=== PATIENT | female | born 1990 | race Caucasian/White ===

== ENCOUNTER 2016-06-10 09:30 | Outpatient (CLI) | payer OTHER ==
[~2016-06-10] VITALS: Ht 165.1 cm; Wt 93.0 kg
[2016-06-10] MEDS ORDERED: PRENTAB26 PO (09:58)
[2016-06-10 10:00] VITALS: Ht 165.1 cm; Wt 93.0 kg
== END 2016-06-10 10:42 | disposition home or self-care (01) ==
LOC: C.OPB 09:30 → C.LD 09:30 → C.OPB 10:42
PROVIDERS: ATTEND Obstetrics & Gynecology
DX: O36.8130 Decreased fetal movements, third trimester, not applicable or unspecified (principal); Z3A.37 37 weeks gestation of pregnancy

== ENCOUNTER → 2016-06-11 | Outpatient (CLI) | payer OTHER ==
[~2016-06-11] MED LIST: PRENTAB26 PO
== END | disposition home or self-care (01) ==
LOC: C.LABSPEC 15:04
PROVIDERS: ATTEND Obstetrics & Gynecology
DX: Z34.02 Encounter for supervision of normal first pregnancy, second trimester (principal)

== ENCOUNTER 2016-06-29 19:39 | Outpatient (CLI) | payer OTHER ==
[~2016-06-29] VITALS: Ht 160 cm; Wt 95.0 kg
[2016-06-29 20:11] VITALS: Ht 160 cm; Wt 95.0 kg
== END 2016-06-29 21:30 | disposition home or self-care (01) ==
LOC: C.OPB 19:39 → C.LD 19:39 → C.OPB 21:30
PROVIDERS: ATTEND Obstetrics & Gynecology
DX: O99.89 Other specified diseases and conditions complicating pregnancy, childbirth and the puerperium (principal); F41.9 Anxiety disorder, unspecified; Z3A.39 39 weeks gestation of pregnancy

== ENCOUNTER 2016-06-30 08:00 | Inpatient (IN) | payer OTHER ==
[~2016-06-30] VITALS: Ht 160 cm; Wt 95.5 kg
[2016-06-30] MEDS ORDERED: MISOPROSTOL 25 MCG TAB ONE (08:26)
[2016-06-30] MEDS ORDERED: LACTATED RINGER'S 1000ML 1,000 ML IV PRN (08:34)
[2016-06-30] MEDS ORDERED: LACTATED RINGER'S 1000ML 500 ML IV PRN ×2 (08:34→15:07)
[2016-06-30] MEDS ORDERED: OXYTOCIN 30 UNITS/500ML NSS IV PRN ×2 (08:45→22:00)
[2016-06-30] MEDS ORDERED: MISOPROSTOL 25 MCG TAB PV ONE (08:45)
[2016-06-30 09:03] VITALS: Ht 160 cm; Wt 95.5 kg
[2016-06-30 09:08] LABS: HEMATOCRIT 31.8 % (37-47); MEAN CELL VOLUME 77.4 fL (80-100); MEAN CORPUSCULAR HEMOGLOBIN 24.3 pg (25-34); MEAN CORPUSCULAR HGB CONC 31.4 g/dl (32-36); MEAN PLATELET VOLUME 11.6 fL (7.4-10.4); PLATELET COUNT 214 K/uL (130-400); RED BLOOD COUNT 4.11 M/uL (4.2-5.4); WHITE BLOOD COUNT 9.66 K/uL (4.8-10.8)
[2016-06-30] MEDS ORDERED: LACTATED RINGER'S 1000ML 1,000 ML IV SCH ×2 (09:30→22:50)
[2016-06-30] MEDS ORDERED: EpHEDrine SULFATE INJ 50 MG/ML AMP ONE (14:26)
[2016-06-30] MEDS ORDERED: BUPIVACAINE 0.25% 30 ML VIAL ONE (14:26)
[2016-06-30] MEDS ORDERED: FENTANYL 2MCG/ML ROPIV 1.25MG/ML 100ML BAG EPI ONE (14:26)
[2016-06-30] MEDS ORDERED: FENTANYL CITRATE INJ 50 MCG/1 ML 2 ML VIAL ONE (14:27)
[2016-06-30] MEDS ORDERED: ONDANSETRON INJ 2 MG/ML 2 ML VIAL IV PRN (15:15)
[2016-06-30] MEDS ORDERED: NALBUPHINE HCL INJ 10 MG/ML AMP IV PRN (15:15)
[2016-06-30] MEDS ORDERED: DiphenhydrAMINE HCL 50 MG/ML VIAL IV PRN (15:15)
[2016-06-30] MEDS ORDERED: NALOXONE HCL INJ 0.4 MG/1 ML VIAL/CARP IV PRN (15:15)
[2016-06-30] MEDS ORDERED: EpHEDrine SULFATE INJ 50 MG/ML AMP IV PRN (15:15)
[2016-06-30] MEDS ORDERED: FENTANYL 2MCG/ML ROPIV 1.25MG/ML 100ML BAG EPI PRN (15:15)
[2016-06-30] MEDS ORDERED: DIPHTHERIA/TETANUS/PERTUSSIS 0.5 ML SYR/VIAL IM. ONE (22:00)
[2016-06-30] MEDS ORDERED: LANOLIN OINT EXT PRN ×2 (22:00)
[2016-06-30] MEDS ORDERED: HYDROCORTISONE ACETATE 25 MG SUPP PR PRN (22:00)
[2016-06-30] MEDS ORDERED: ACETAMINOPHEN 325 MG TAB PO PRN (22:00)
[2016-06-30] MEDS ORDERED: OXYCODONE/ACETAMINOPHEN 5-325 TAB PO PRN (22:00)
[2016-06-30] MEDS ORDERED: BENZOCAINE 20% AER SPR 82.5 GM CAN EXT PRN (22:00)
--- NOTE | 2016-06-30 22:49 | DELIVERY SUMMARY ---
DATE OF OPERATION: 06/30/2016 PREOPERATIVE DIAGNOSES: 1. Mauricio intrauterine at term. 2. Induction of labor. 3. Group B strep negative. POSTOPERATIVE DIAGNOSES: Same. PROCEDURES: 1. Spontaneous vaginal delivery. 2. Second degree perineal laceration. SURGEON: Dr. Xavier. OIL BURNER REPAIRER: None. ESTIMATED BLOOD LOSS: 400. FINDINGS: Mild shoulder dystocia resolved with Sharda positioning. Compound presentation of the with the right arm wrapped around the neck and the right hand on the left shoulder. Placenta spontaneous and intact with a 3-vessel cord. COMPLICATIONS: None. DISPOSITION: Stable in labor and delivery. PROCEDURE IN DETAIL: Katty is a 26-year-old G1, P0 who presented at 39 and 5/7 weeks gestational age for elective induction of labor due to maternal inability to perceive movements which had been chronic over several weeks. Her induction was begun with a Andrade bulb on the night of the . She presented again on the morning of the with the cervix minimally changed. Therefore, she received a dose of Cytotec, followed by artificial rupture of membranes and eventually did require Pitocin as well. She was provided with an epidural for pain management. Once the patient reached complete dilation, she was coached through pushing and then I was called when the head was . She was prepped and readied for delivery. With the next push, she was able to deliver the head of the infant in the LYLA position. Following push did not result in any further forward movement. The patient was then placed in Sharda position. In the next push, she was able to deliver the right/anterior shoulder and was noted at that time to have compound presentation of the right arm with that hand on the left shoulder. The left shoulder then delivered without any difficulty, followed by the remainder of the infant. Once the was delivered, it was placed on the maternal abdomen and at her request, cord clamping was delayed. However, it became evident after approximately 20 seconds, that respiratory efforts in the were relatively weak and tone was relatively poor. For this reason, the cord was then clamped, cut and the was taken to the warmer for resuscitative efforts. DeLee suctioning was provided and the infant ultimately resuscitated well. Cord blood was collected. The placenta delivered spontaneously and a second degree laceration was repaired with Vicryl suture in the usual manner with a crown suture for perineal body and running locked suture as well as subcuticular suture to close the perineum. At the time of completion, the fundus was firm, well contracted. Lochia was minimal and mother and were in good condition, having tolerated delivery well. I attest to the content of the Intraoperative Record and any orders documented therein. Any exceptio ns are noted below.
[2016-07-01 00:15] VITALS: BP 114/76; PULSE 102; TEMP 36.8
[2016-07-01 04:00] VITALS: BP 125/74; PULSE 88; TEMP 36.4
--- NOTE | 2016-07-01 06:53 | Progress Note ---
Subjective Jul 01, 2016. Subjective conversation w/ patient, physical exam Ambulation: ambulating normally Voiding: no voiding problems Passing Gas: No Diet Tolerance: Clear Liquids Lochia: Moderate Feeding Type: Breast Feeding Pain: Pain well controlled Review of Systems Constitutional: No chills, No fever Respiratory: No cough, No shortness of breath Cardiac: No chest pain Breast: No breast pain Abdomen: No nausea, No pain, No vomiting Female : No dysuria Objective Vital Signs Date Time Temp Pulse Resp B/P Pulse Ox O2 Delivery O2 Flow Rate FiO2 07/01/16 04:00 36.4 88 18 125/74 Room Air 07/01/16 00:15 Room Air 07/01/16 00:15 36.8 102 114/76 Room Air Physical Exam General Appearance: WELL-APPEARING, WD/WN, NO APPARENT DISTRESS Respiratory/Chest: lungs clear, normal breath sounds Cardiovascular: regular rate, rhythm, no gallop, no murmur Abdomen: non tender, soft Fundus: Firm, Relation to Umbilicus (1cm above umbilicus) Extremities: no calf tenderness Laboratory Results Last 24 Hours Test 06/30/16 08:55 07/01/16 04:44 White Blood Count 9.66 K/uL Red Blood Count 4.11 M/uL Hemoglobin 10.0 g/dL Hematocrit 31.8 % Mean Corpuscular Volume 77.4 fL Mean Corpuscular Hemoglobin 24.3 pg Mean Corpuscular Hemoglobin Concent 31.4 g/dl RDW Standard Deviation 42.9 fL RDW Coefficient of Variation 15.2 % Platelet Count 214 K/uL Mean Platelet Volume 11.6 fL Medications Current Inpatient Medications Medications (Trade) Dose Ordered Sig/Chandana Route Start Time Stop Time Status Last Admin Dose Admin Lactated Ringer's 1,000 ml @ 125 mls/hr Q8H IV 06/30/16 09:30 07/02/16 09:29 06/30/16 15:07 125 MLS/HR Lactated Ringer's (Lr 1000ml) 1,000 ml @ 999 mls/hr Q1H1M PRN IV 06/30/16 08:34 07/30/16 08:33 06/30/16 15:07 999 MLS/HR Oxytocin 30 units 30 units UD PRN IV 06/30/16 08:45 07/30/16 08:44 06/30/16 18:06 30 UNITS Lactated Ringer's 500 ml @ 999 mls/hr Q31M PRN IV 06/30/16 08:34 07/30/16 08:33 06/30/16 12:09 999 MLS/HR Lactated Ringer's (Lr 1000ml) 1,000 ml @ 125 mls/hr Q8H IV 06/30/16 22:50 07/30/16 22:49 Oxytocin (Pitocin IV) 30 units UD PRN IV 06/30/16 22:00 07/30/16 21:59 Benzocaine (Dermoplast Aero Spr) 1 appln PRN PRN EXT 06/30/16 22:00 07/30/16 21:59 Cocaine HCl (Supercream 0.870% Cr) BID PRN EXT 06/30/16 22:00 07/14/16 21:59 Hydrocortisone Acetate (Anusol Hc Supp) 25 mg BID PRN [place] 06/30/16 22:00 07/30/16 21:59 Lanolin (Lanolin Oint) PRN PRN EXT 06/30/16 22:00 07/30/16 21:59 Prenat Multivit/ [place]/Iron/Folic Ac ( Vitamin Tab) 1 tab DAILY PO 07/01/16 08:00 07/31/16 07:59 Ibuprofen (Motrin Tab) 600 mg Q4H PRN PO 06/30/16 22:00 07/30/16 21:59 Acetaminophen (Tylenol Tab) 650 mg Q6H PRN PO 06/30/16 22:00 07/30/16 21:59 Oxycodone/ Acetaminophen (Percocet 5-325mg Tab) 1 tab Q4H PRN PO 06/30/16 22:00 07/14/16 21:59 Docusate Sodium (coLACE CAP) 100 mg BID PO 07/01/16 08:00 07/31/16 07:59 Assessment and Plan Post- Day#: 1 Continue Routine Care: - Vital Signs reviewed and WNL (temp max 36.4) - Blood Type: A+, GBS Negative, Rubella Immune - Patient doing well clinically - Encourage Ambulation today - Advance to PO Diet - No pain reported this morning and refused pain medication Resident Physician Supervision Note: I interviewed and examined the patient. Discussed with Dr. Montgomery and agree with findings and plan as documented in the note. Any exceptions or clarifications are listed here: Infant currently in intermediate nursery for respiratory distress. Per Dr. William, doing well and will be moved to room air by later today. Documented By: Valencia Xavier
--- NOTE | 2016-07-01 07:07 | Anesthesia Procedure Note ---
Anesthesia Epidural Removal Nt Date & Time Jul 01, 2016 at 07:07 Vital Signs Pain Intensity: 3.0 Vital Signs Past 12 Hours Date Time Temp Pulse Resp B/P Pulse Ox O2 Delivery O2 Flow Rate FiO2 07/01/16 04:00 36.4 88 18 125/74 Room Air 07/01/16 00:15 Room Air 07/01/16 00:15 36.8 102 114/76 Room Air Notes Mental Status: alert / awake / arousable, participated in evaluation Nausea / Vomiting: adequately controlled Pain: adequately controlled Airway Patency, RR, SpO2: stable & adequate BP & HR: stable & adequate Hydration State: stable & adequate Neuraxial Anesthesia: was administered, sensory block is resolved Anesthetic Complications: no major complications apparent, pt satisfied with anesthetic care Epidural: removed without complications, with tip intact
[2016-07-01 07:30] VITALS: BP 113/76; PULSE 94; TEMP 36.6
[2016-07-01 07:30] LABS: HEMATOCRIT 29.3 % (37-47)
[2016-07-01] MEDS: SUPERCREAM 0.870 % 15GM JAR EXT PRN (07:45)
[2016-07-01] MEDS: DOCUSATE SODIUM 100 MG CAP PO SCH ×2 (07:47→20:29)
[2016-07-01] MEDS: PRENATAL VITAMIN TAB PO SCH (07:48)
[2016-07-01 12:30] VITALS: BP 109/74; PULSE 97; TEMP 36.3
[2016-07-01 15:50] VITALS: BP 107/74; PULSE 101; TEMP 36.6
[2016-07-01] MEDS: IBUPROFEN 600 MG TAB PO PRN (16:30)
[2016-07-01 19:30] VITALS: BP 111/74; PULSE 103; TEMP 36.6
[2016-07-02 00:05] VITALS: BP 99/59; PULSE 83; TEMP 36.6
--- NOTE | 2016-07-02 06:46 | Progress Note ---
Subjective Jul 02, 2016. Subjective conversation w/ patient, physical exam Ambulation: ambulating normally Voiding: no voiding problems Passing Gas: Yes Diet Tolerance: Regular Diet Lochia: Small Feeding Type: Breast Feeding Pain: Well controlled with Motrin Review of Systems Constitutional: No chills, No fever Respiratory: No cough, No shortness of breath Cardiac: No chest pain Breast: No breast pain Abdomen: No nausea, No pain, No vomiting Female : No dysuria Objective Vital Signs Date Time Temp Pulse Resp B/P Pulse Ox O2 Delivery O2 Flow Rate FiO2 07/02/16 00:05 Room Air 07/02/16 00:05 36.6 83 18 99/59 Room Air 07/01/16 19:30 36.6 103 18 111/74 Room Air 07/01/16 15:50 Room Air 07/01/16 15:50 36.6 101 16 107/74 Room Air 07/01/16 12:30 36.3 97 20 109/74 07/01/16 07:30 Room Air 07/01/16 07:30 36.6 94 22 113/76 Physical Exam General Appearance: WELL-APPEARING, WD/WN, NO APPARENT DISTRESS Respiratory/Chest: lungs clear, normal breath sounds Cardiovascular: regular rate, rhythm, no gallop, no murmur Abdomen: non tender, soft Fundus: Firm, Relation to Umbilicus (1cm below umbilicus) Extremities: no calf tenderness Laboratory Results Last 24 Hours Test 07/01/16 07:17 Hemoglobin 9.4 g/dL Hematocrit 29.3 % Medications Current Inpatient Medications Medications (Trade) Dose Ordered Sig/Chandana Route Start Time Stop Time Status Last Admin Dose Admin Lactated Ringer's 1,000 ml @ 125 mls/hr Q8H IV 06/30/16 09:30 07/02/16 09:29 06/30/16 15:07 125 MLS/HR Lactated Ringer's (Lr 1000ml) 1,000 ml @ 999 mls/hr Q1H1M PRN IV 06/30/16 08:34 07/30/16 08:33 06/30/16 15:07 999 MLS/HR Oxytocin 30 units 30 units UD PRN IV 06/30/16 08:45 07/30/16 08:44 06/30/16 18:06 30 UNITS Lactated Ringer's 500 ml @ 999 mls/hr Q31M PRN IV 06/30/16 08:34 07/30/16 08:33 06/30/16 12:09 999 MLS/HR Lactated Ringer's (Lr 1000ml) 1,000 ml @ 125 mls/hr Q8H IV 06/30/16 22:50 07/30/16 22:49 Oxytocin (Pitocin IV) 30 units UD PRN IV 06/30/16 22:00 07/30/16 21:59 Benzocaine (Dermoplast Aero Spr) 1 appln PRN PRN EXT 06/30/16 22:00 07/30/16 21:59 Cocaine HCl (Supercream 0.870% Cr) BID PRN EXT 06/30/16 22:00 07/14/16 21:59 07/01/16 07:45 15 GM Hydrocortisone Acetate (Anusol Hc Supp) 25 mg BID PRN [place] 06/30/16 22:00 07/30/16 21:59 Lanolin (Lanolin Oint) PRN PRN EXT 06/30/16 22:00 07/30/16 21:59 Prenat Multivit/ [place]/Iron/Folic Ac ( Vitamin Tab) 1 tab DAILY PO 07/01/16 08:00 07/31/16 07:59 07/01/16 07:48 1 TAB Ibuprofen (Motrin Tab) 600 mg Q4H PRN PO 06/30/16 22:00 07/30/16 21:59 07/01/16 16:30 600 MG Acetaminophen (Tylenol Tab) 650 mg Q6H PRN PO 06/30/16 22:00 07/30/16 21:59 Oxycodone/ Acetaminophen (Percocet 5-325mg Tab) 1 tab Q4H PRN PO 06/30/16 22:00 07/14/16 21:59 Docusate Sodium (coLACE CAP) 100 mg BID PO 07/01/16 08:00 07/31/16 07:59 07/01/16 20:29 100 MG Assessment and Plan Post- Day#: 2 Continue Routine Care: - Vital Signs reviewed and WNL (temp max 36.6) - Blood Type: A+, GBS Negative, Rubella Immune - Patient doing well clinically - Encourage Ambulation today - Tolerating PO Diet - Pain well controlled with Motrin - Discharge today Resident Physician Supervision Note: I interviewed and examined the patient. Discussed with Dr. Montgomery and agree with findings and plan as documented in the note. Any exceptions or clarifications are listed here: [None] Documented By: Gera Hernandez
--- NOTE | 2016-07-02 06:47 | Discharge Instructions ---
Discharge Instructions Admission Reason for Admission: Induction Discharge Discharge Diagnosis / Problem: Vaginal Delivery Discharge Goals Goal(s): Routine recovery after delivery Medications Continue Dispensed Medications: supercream, dermaplast, tucks, lansinoh Activity Recommendations Activity Limitations: per Instructions/Follow-up section . Instructions / Follow-Up Instructions / Follow-Up ACTIVITY RECOMMENDATIONS: * Gradual return to full activity over the next 2-3 weeks. * No lifting - nothing heavier than baby over the next 2-3 weeks. * Do not engage in vigorous exercise, sexual activity or sports until cleared by your physician. * Do not drive or operate any motorized equipment until cleared by your physician. * You may shower/bathe daily. MEDICATIONS: For discomfort or pain, you may use Acetaminophen (Tylenol), Ibuprofen (Advil), or Naproxen (Aleve) following the package directions. For constipation you may use Colace following the package directions. BREAST CARE: If you are not breast feeding: * Wear a supportive bra 24 hours a day for one to two weeks. * Avoid stimulating your breasts and nipples as much as possible during the first few weeks after delivery. * When taking a shower, have the warm water hit your back, not breasts. * When your breasts feel full, apply ice packs. Usually three to four times a day helps ease the discomfort. * Take a mild pain medication (Tylenol / Motrin) when you are uncomfortable. If breast feeding: * Use breast milk to lubricate nipples. Lansinoh cream may be used for sore nipples. You do not need to remove cream prior to breast feeding. If using a different brand of cream, check the label for directions regarding removal of cream prior to nursing. * Wear a supportive bra. * If having problems with breasts or breast feeding, call a implementation consultant or your health care provider. EPISIOTOMY CARE: After delivery, if you have an episiotomy (stitches), the following steps will ease discomfort and aid healing. * For the first 24 hours after delivery, place ice packs next to your episiotomy to help reduce swelling. * After the first 24 hour-period, sitz baths, either portable or in the tub, are suggested. A shower with a shower arm sprayed over the episiotomy may be comforting. * Caro care should be done after each voiding and bowel movement. Squirt warm water from a plastic bottle over the perineum (region of the body between the anus and urinary opening) and pat dry. * Use Dermoplast to ease discomfort. Shake container. Pelham directly over the episiotomy. Place a Tucks on a clean sanitary pad next to your episiotomy. SPECIAL CARE INSTRUCTIONS: When you are discharged from the hospital, it is important for you to follow the instructions listed below: * During the first week at home, you should be able to care for yourself and your baby. In addition, the usual light household activities are encouraged. * Limit your activities to the way you feel. Do not try to clean the house or move furniture. Be sensible. * If you actively engage in sports and have done so up until the time of your delivery, you may resume these activities as soon as you feel able. This may take up to one month or even longer. Use good judgment. * Continue to take your vitamins for at least six weeks after the of your baby. * Your diet need not be limited unless you were on a special diet before your delivery. Breast-feeding mothers need around 2500 calories per day and at least 64-80 ounces of fluid per day (8 to 10 glasses). * You should eat foods from the four major food groups. Crash diets or fad diets are to be avoided. Eating lean meats, fresh fruits and vegetables, low-fat dairy products, high fiber foods and a regular exercise program, will help you get back to your pre- weight without putting your health at risk. * Constipation is sometimes a problem after delivery. Take a mild laxative as needed. If breast feeding, Milk of Magnesia is acceptable to use. You may use a suppository or Fleets enema if no episiotomy. * A daily shower or tub bath is suggested. Be sure to thoroughly and gently dry the perineum. * A bloody vaginal discharge will usually continue until around four weeks post . A small amount of bleeding may continue for as long as six weeks. Vaginal discharge changes from the bright red bleeding after delivery to pink then brownish and finally yellowish-pink before becoming white and disappearing. * Bleeding may increase with activity. Your first period may come in 4-8 weeks. If you are breast feeding, your period may be delayed even longer. * [place] (sex) can begin whenever both you and your partner feel comfortable and do not have any form of genital infection. It is recommended that you wait at least six weeks for internal and external healing to occur. If you have questions, please talk to your health care practitioner. A condom should be used to prevent infection and . * Foreplay, gentle intercourse and lubrication is very important the first several times to prevent pain. A water-based lubricant such as K-Y jelly or Astroglide may be used. * If you have RH negative blood and your baby is RH positive, you will receive RHOGAM by injection prior to discharge. The nurse will give you a card to keep with you that has the date and place that you received RHOGAM after delivery. * During your care, you had a Rubella screen done to check for the presence of rubella antibodies in your blood. If your test was negative, you will receive a Rubella vaccine prior to discharge. This vaccine may cause a fever, soreness at the injection site and flu-like symptoms. If these symptoms persist, notify your health care practitioner. is not advised for one month after a Rubella vaccine. * Verbalizes understanding of car seat law as reviewed with patient nursing. * Car Seat hand-out given and reviewed with patient by nursing. * Shaken baby information reviewed with patient by nursing. Call you doctor if: * Heavy bleeding (saturating several pads an hour) or passing clots the size of your fist. * A fever >101 degrees F (38.3 degrees C) on two occasions four hours apart and /or chills. * Unusual pain in the pelvic or vaginal areas. * "Baby Blues" lasting longer than two weeks. If you have any questions or concerns, call your health care practitioner at . FOLLOW UP VISIT: * Please call the office at to schedule a 6 week examination. It is important you keep this appointment. It is important for you to make arrangements for either yearly or twice yearly check-ups thereafter. Current Hospital Diet Patient's current hospital diet: Regular OB Diet Discharge Diet Recommended Diet: Regular Diet Pending Studies Studies pending at discharge: no Medical Emergencies . Who to Call and When: Medical Emergencies: If at any time you feel your situation is an emergency, please call 911 immediately. . Non-Emergent Contact Non-Emergency issues call your: [employer] . . "Provider Documentation" section prepared by Bernard Montgomery. VTE Core Measure Inpt VTE Proph given/why not?: Treatment not indicated
[2016-07-02 07:33] VITALS: BP 111/75; PULSE 86; TEMP 36.6; O2SAT 97
[2016-07-02] MEDS: PRENATAL VITAMIN TAB PO SCH (08:41)
[2016-07-02] MEDS: DOCUSATE SODIUM 100 MG CAP PO SCH (09:03)
[2016-07-02 09:34] VITALS: O2SAT 97
[2016-07-02] MEDS: IBUPROFEN 600 MG TAB PO PRN (11:31)
[2016-07-02 13:17] VITALS: BP_DIAS 75; PULSE 86; TEMP 36.6
[2016-07-02] MEDS: SUPERCREAM 0.870 % 15GM JAR EXT PRN (13:50)
== END 2016-07-02 15:15 | disposition home or self-care (01) | DRG 775 ==
LOC: C.LD 08:00 → C.OBG 07-01 00:18
PROVIDERS: ADMIT Obstetrics & Gynecology; ATTEND Obstetrics & Gynecology
PROC: 3E0P7GC Introduction of Other Therapeutic Substance into Female Reproductive, Via Natural or Artificial Opening (ICD-10-PCS; principal; 2016-06-30)
PROC: 10E0XZZ Delivery of Products of Conception, External Approach (ICD-10-PCS; principal; 2016-06-30)
PROC: 0KQM0ZZ Repair Perineum Muscle, Open Approach (ICD-10-PCS; principal; 2016-06-30)
PROC: 0U7C7ZZ Dilation of Cervix, Via Natural or Artificial Opening (ICD-10-PCS; principal; 2016-06-30)
PROC: 3E033VJ Introduction of Other Hormone into Peripheral Vein, Percutaneous Approach (ICD-10-PCS; principal; 2016-06-30)
PROC: 10907ZC Drainage of Amniotic Fluid, Therapeutic from Products of Conception, Via Natural or Artificial Opening (ICD-10-PCS; principal; 2016-06-30)
DX: O36.8130 Decreased fetal movements, third trimester, not applicable or unspecified (principal); Z37.0 Single live birth; O66.0 Obstructed labor due to shoulder dystocia; O70.1 Second degree perineal laceration during delivery; O32.6XX0 Maternal care for compound presentation, not applicable or unspecified; Z3A.39 39 weeks gestation of pregnancy

== ENCOUNTER 2017-03-12 16:57 | Emergency (ER) | payer OTHER ==
[~2017-03-12] VITALS: Ht 162.6 cm; Wt 99.4 kg
[2017-03-12] MEDS ORDERED: SODIUM CHLORIDE 0.9% 1000ML 1,000 ML IV STA (17:09)
[2017-03-12 17:33] VITALS: O2SAT 98; Ht 162.6 cm; Wt 99.4 kg
[2017-03-12 17:37] LABS: BASO % 0.6 %; BASO ABS # 0.05 K/uL (0-0.2); COMPLETE YES; EOS % 1.3 %; HEMATOCRIT 36.6 % (37-47); IG% 0.6 %; LYMPH % 26.7 %; LYMPH ABS # 2.19 K/uL (1.2-3.4); MEAN CELL VOLUME 85.7 fL (80-100); MEAN CORPUSCULAR HEMOGLOBIN 28.1 pg (25-34); MEAN CORPUSCULAR HGB CONC 32.8 g/dl (32-36); MONO % 7.2 %; NEUT % 63.6 %; PLATELET COUNT 257 K/uL (130-400); RED BLOOD COUNT 4.27 M/uL (4.2-5.4); WHITE BLOOD COUNT 8.19 K/uL (4.8-10.8)
[2017-03-12 17:50] LABS: PARTIAL THROMBOPLASTIN RATIO 1.1; PROTHROMBIN TIME (PATIENT) 10.8 SECONDS (9.0-12.0)
[2017-03-12 18:00] LABS: CALCIUM 9.2 mg/dl (8.5-10.1); CREATININE 0.82 mg/dl (0.60-1.20); POTASSIUM 3.8 mmol/L (3.5-5.1)
[2017-03-12 18:03] LABS: ALB/GLOB RATIO 1.1 (0.9-2)
--- NOTE | 2017-03-12 19:12 | DIAGNOSTIC IMAGING REPORT ---
ULTRASOUND OF THE PELVIS CLINICAL HISTORY: Reportedly 5 weeks . Pelvic pain. COMPARISON STUDY: No priors. TECHNIQUE: Real-time, grayscale, and color flow sonography of the pelvis is performed both transabdominally and endovaginally. Images are reviewed in the transverse and longitudinal planes. FINDINGS: Uterus: The retroflexed uterus is normal in size and echotexture, measuring 8.2 x 4.7 x 5.9 cm. Gestation: There is a single live intrauterine gestation with estimated heart rate of 122 bpm. A yolk sac is seen. The crown-rump length measures 0.67 cm, corresponding to estimated age of 6 weeks 4 days. Ovaries: The ovaries are normal in size and morphology. The right ovary measures 3.3 x 1.5 x 2.1 cm and the left ovary measures 3.0 x 1.3 x 2.0 cm. Small follicles are seen bilaterally. Normal Doppler waveforms are shown within both ovaries. Pelvis: There is no free fluid in the cul-de-sac. No concerning adnexal lesion is seen. IMPRESSION: 1. There is a single live intrauterine gestation with an estimated age of 6 weeks 4 days by crown-rump length measurement. 2. The ovaries are normal as visualized. Electronically signed by: Stone Vargas M.D. 03/12/2017 7:10 PM Dictated Date/Time: 03/12/2017 7:08 PM
[2017-03-12 19:58] LABS: URINE APPEARANCE CLEAR (CLEAR); URINE BILIRUBIN NEG (NEG); URINE COLOR YELLOW; URINE NITRITE NEG (NEG); URINE PH 6.5 (4.5-7.5); UROBILINOGEN NEG (NEG)
[2017-03-12 20:03] LABS: MANUAL MICROSCOPIC REQUIRED? NO; REVIEW REQ? NO
[2017-03-12 20:30] VITALS: BP 116/78; PULSE 71; TEMP 36.8; O2SAT 98
--- NOTE | 2017-03-13 00:13 | EMERGENCY ROOM VISIT NOTE ---
History Report prepared by Roni: Michele Hennessy Under the Supervision of: Diogo ShaverO. First contact with patient: 17:03 Chief Complaint: ED VAG BLEEDING Stated Complaint: SPOTTING, BACK CRAMPS, 5WKS History of Present Illness The patient is a 26 year old female who presents to the Emergency Room with complaints of constant cramping in her lower back beginning an hour ago. The patient states she is currently five weeks , and she has been experiencing spotting and back cramps. She reports she called the nursing hotline and was told to come in for a possible ectopic . The patient notes she has an 8.5 month old son that was born vaginally. She states she is currently breast feeding. The patient reports her last menstrual period ended just over a month ago. She notes her spotting it intermittent, and there is hardly any blood present. The patient states her blood type is A+. She denies having this before, previous miscarriages, dizziness, lightheadedness, shortness of breath, chest pain, and abdominal pain. The patient reports she still has her gallbladder and her appendix. Source of History: patient Onset: 1 hour ago Position: back (lower) Associated Symptoms: No chest pain, No SOB, No abdominal pain Note: Associated symptoms: intermittent spotting Denies: previous miscarriages, dizziness, and lightheadedness Review of Systems See HPI for pertinent positives & negatives. A total of 10 systems reviewed and were otherwise negative. Past Medical & Surgical Medical Problems: (1) 39 weeks gestation of (2) Decreased movement affecting management of in third trimester (3) Unfavorable cervix in term Family History Patient reports no known family medical history. Social History Smoking Status: Never Smoker Marital Status: Housing Status: lives with family Current/Historical Medications Scheduled Multivit/Min/Iron/Fol Ac/Pren ( Vitamin), 1 TAB PO DAILY Allergies Coded Allergies: No Known Allergies (Unverified , 03/12/17) Physical Exam Vital Signs Date Time Temp Pulse Resp B/P (MAP) Pulse Ox O2 Delivery O2 Flow Rate FiO2 03/12/17 20:30 71 16 116/78 98 Room Air 03/12/17 20:30 36.8 71 16 116/78 98 03/12/17 19:30 72 16 118/78 98 Room Air 03/12/17 17:33 98 Room Air 03/12/17 17:00 36.8 72 16 116/80 98 Room Air Physical Exam GENERAL: Sitting up in bed, alert, well appearing, well nourished, no distress, non-toxic EYE EXAM: normal conjunctiva OROPHARYNX: no exudate, no erythema, lips, buccal mucosa, and tongue normal and mucous membranes are moist NECK: supple, no nuchal rigidity, no adenopathy, non-tender LUNGS: Clear to auscultation. Normal chest wall mechanics HEART: no murmurs, S1 normal and S2 normal ABDOMEN: abdomen soft, non-tender, normo-active bowel sounds, no masses, no rebound or guarding. BACK: Back is symmetrical on inspection and there is no deformity, no CVA tenderness. Minimal tenderness to palpation in the lumbar and perispinal area. PELVIC: normal external genitalia, vaginal mucous normal, cervix is closed SKIN: no rashes and no bruising UPPER EXTREMITIES: upper extremities are grossly normal. LOWER EXTREMITIES: No pitting edema. NEURO EXAM: Normal sensorium, cranial nerves II-XII grossly intact, normal speech, no gross weakness of arms, no gross weakness of legs. Medical Decision & Procedures ER Provider Diagnostic Interpretation: Radiology results as stated below per my review and the radiologist's interpretation: ULTRASOUND OF THE PELVIS CLINICAL HISTORY: Reportedly 5 weeks . Pelvic pain. COMPARISON STUDY: No priors. TECHNIQUE: Real-time, grayscale, and color flow sonography of the pelvis is performed both transabdominally and endovaginally. Images are reviewed in the transverse and longitudinal planes. FINDINGS: Uterus: The retroflexed uterus is normal in size and echotexture, measuring 8.2 x 4.7 x 5.9 cm. Gestation: There is a single live intrauterine gestation with estimated heart rate of 122 bpm. A yolk sac is seen. The crown-rump length measures 0.67 cm, corresponding to estimated age of 6 weeks 4 days. Ovaries: The ovaries are normal in size and morphology. The right ovary measures 3.3 x 1.5 x 2.1 cm and the left ovary measures 3.0 x 1.3 x 2.0 cm. Small follicles are seen bilaterally. Normal Doppler waveforms are shown within both ovaries. Pelvis: There is no free fluid in the cul-de-sac. No concerning adnexal lesion is seen. IMPRESSION: 1. There is a single live intrauterine gestation with an estimated age of 6 weeks 4 days by crown-rump length measurement. 2. The ovaries are normal as visualized. Electronically signed by: Stone Vargas M.D. 03/12/2017 7:10 PM Dictated Date/Time: 03/12/2017 7:08 PM Laboratory Results 03/12/17 17:25 Red Blood Count 4.27, Mean Corpuscular Volume 85.7, Mean Corpuscular Hemoglobin 28.1, Mean Corpuscular Hemoglobin Concent 32.8, Mean Platelet Volume 10.0, Neutrophils (%) (Auto) 63.6, Lymphocytes (%) (Auto) 26.7, Monocytes (%) (Auto) 7.2, Eosinophils (%) (Auto) 1.3, Basophils (%) (Auto) 0.6, Neutrophils # (Auto) 5.20, Lymphocytes # (Auto) 2.19, Monocytes # (Auto) 0.59, Eosinophils # (Auto) 0.11, Basophils # (Auto) 0.05 03/12/17 17:25 Test 03/12/17 17:25 03/12/17 19:42 White Blood Count 8.19 K/uL (4.8-10.8) Red Blood Count 4.27 M/uL (4.2-5.4) Hemoglobin 12.0 g/dL (12.0-16.0) Hematocrit 36.6 % (37-47) Mean Corpuscular Volume 85.7 fL (80-100) Mean Corpuscular Hemoglobin 28.1 pg (25-34) Mean Corpuscular Hemoglobin Concent 32.8 g/dl (32-36) Platelet Count 257 K/uL (130-400) Mean Platelet Volume 10.0 fL (7.4-10.4) Neutrophils (%) (Auto) 63.6 % Lymphocytes (%) (Auto) 26.7 % Monocytes (%) (Auto) 7.2 % Eosinophils (%) (Auto) 1.3 % Basophils (%) (Auto) 0.6 % Neutrophils # (Auto) 5.20 K/uL (1.4-6.5) Lymphocytes # (Auto) 2.19 K/uL (1.2-3.4) Monocytes # (Auto) 0.59 K/uL (0.11-0.59) Eosinophils # (Auto) 0.11 K/uL (0-0.5) Basophils # (Auto) 0.05 K/uL (0-0.2) RDW Standard Deviation 48.1 fL (36.4-46.3) RDW Coefficient of Variation 15.3 % (11.5-14.5) Immature Granulocyte % (Auto) 0.6 % Immature Granulocyte # (Auto) 0.05 K/uL (0.00-0.02) Prothrombin Time 10.8 SECONDS (9.0-12.0) Prothromb Time International Ratio 1.0 (0.9-1.1) Activated Partial Thromboplast Time 28.1 SECONDS (21.0-31.0) Partial Thromboplastin Ratio 1.1 Anion Gap 8.0 mmol/L (3-11) Est Creatinine Clear Calc Drug Dose 120.2 ml/min Estimated GFR () 115.3 Estimated GFR (Non- 99.5 BUN/Creatinine Ratio 16.0 (10-20) Calcium Level 9.2 mg/dl (8.5-10.1) Total Bilirubin 0.5 mg/dl (0.2-1) Aspartate Amino Transf (AST/SGOT) 20 U/L (15-37) Alanine Aminotransferase (ALT/SGPT) 29 U/L (12-78) Alkaline Phosphatase 108 U/L (45-117) Total Protein 8.0 gm/dl (6.4-8.2) Albumin 4.2 gm/dl (3.4-5.0) Globulin 3.8 gm/dl (2.5-4.0) Albumin/Globulin Ratio 1.1 (0.9-2) Human Chorionic Gonadotropin, Quant 93865 mIU/mL Urine Color YELLOW Urine Appearance CLEAR (CLEAR) Urine pH 6.5 (4.5-7.5) Urine Specific [place] 1.010 (1.000-1.030) Urine Protein NEG (NEG) Urine Glucose (UA) NEG (NEG) Urine Ketones NEG (NEG) Urine Occult Blood NEG (NEG) Urine Nitrite NEG (NEG) Urine Bilirubin NEG (NEG) Urine Urobilinogen NEG (NEG) Urine Leukocyte Esterase NEG (NEG) Urine Test POS (NEG) Laboratory results per my review. Medications Administered Medications (Trade) Dose Ordered Sig/Chandana Route Start Time Stop Time Status Last Admin Dose Admin Sodium Chloride 1,000 ml @ 999 mls/hr Q1H1M STAT IV 03/12/17 17:09 03/12/17 18:09 DC 03/12/17 17:32 999 MLS/HR ED Course ED COURSE: Vital signs were reviewed and showed normotensive. The patients medical record was reviewed The above diagnostic studies were performed and reviewed. ED treatments and interventions as stated above. 1705: The patient was evaluated in room A02. A complete history and physical examination was performed. 170: Ordered Sodium Chloride 1000 ml @ 999 mls/hr IV 194: I reevaluated the patient and discussed current exam findings. 2019: Upon reevaluation, the patient is resting and feeling better. I discussed my findings with the patient and she understands and agrees with the treatment plan. Based on the patients age, coexisting illnesses, exam and lab findings the decision to treat as an outpatient was made. The patient remained stable while under my care. The patient appeared well at the time of discharge. Medical Decision Differential diagnoses includes but is not limited to gastritis, peptic ulcer disease, GERD, gallbladder disease, pancreatitis, small bowel obstruction, acute coronary syndrome, pericarditis, ischemic bowel, irritable bowel disease, irritable bowel syndrome, appendicitis, diverticulitis, malignancy, hernia, urinary tract infection, torsion, /ectopic , perforation, trauma, infectious. Patient is a 26-year-old female who presents to ER as she is 5 weeks per spotting. She notes that she had faint blood-tinged on her underwear. No past of clots. She does have cramping in her lower back. Other abdominal pain or urinary symptoms. She is a . CBC all BMP, LFTs, bilirubin was unremarkable. HCG was 20,000. Ultrasound shows an IUP. Pelvic shows closed cervix. She is a positive. No RhoGAM given. She was discharged to follow-up with gynecology for first trimester vaginal bleeding. Discussed with Pt concerning signs and symptoms to watch out for. Pt was instructed to follow up with their PCP and discussed with the patient their option to return to the ED at anytime for persistent or worsening symptoms. The appropriate anticipatory guidance and out-patient management, including indications for return to the emergency department, were explained at length to the patient and understood. Medication Reconcilliation Current Medication List: was personally reviewed by me Blood Pressure Screening Patient's blood pressure: Normal blood pressure Blood pressure disposition: Elevated BP felt to be situational Impression Primary Impression: First trimester bleeding Scribe Attestation The scribe's documentation has been prepared under my direction and personally reviewed by me in its entirety. I confirm that the note above accurately reflects all work, treatment, procedures, and medical decision making performed by me. Departure Information Dispostion Home / Self-Care Referrals No Doctor, Assigned (PCP) Forms HOME CARE DOCUMENTATION FORM, IMPORTANT VISIT INFORMATION, WORK / SCHOOL INSTRUCTIONS Patient Instructions Bleeding Early Preg, My [facility] Additional Instructions Please follow up with your DOMESTIC TECHNICIAN with in the next 24 hours. Any worsening of your symptoms, please return to the ED immediately. This includes any fevers greater than 100.4, worsening pain, going through more than 1 pad an hour, passing large clots, passing tissue, chest pain, shortness breath, persistent nausea, vomiting, unable to eat or drink, or any other concerning signs or symptoms from your standpoint. Please take Tylenol as needed for cramping. Your beta hCG was 19,300.
== END 2017-03-12 20:30 | disposition home or self-care (01) ==
LOC: C.EDB 16:59 → C.EDA 20:30
DX: O26.851 Spotting complicating pregnancy, first trimester (principal); R25.2 Cramp and spasm; Z3A.01 Less than 8 weeks gestation of pregnancy

== ENCOUNTER → 2017-03-22 | Outpatient (CLI) | payer OTHER ==
[2017-03-22 19:14] LABS: URINE APPEARANCE CLEAR (CLEAR); URINE BILIRUBIN NEG (NEG); URINE COLOR YELLOW; URINE EPITHELIAL CELL AUTO >30 /lpf (0-5); URINE NITRITE NEG (NEG); URINE SPECIFIC GRAVITY 1.018 (1.000-1.030); UROBILINOGEN NEG (NEG)
[2017-03-22 19:26] LABS: MANUAL MICROSCOPIC REQUIRED? NO; REVIEW REQ? NO
== END | disposition home or self-care (01) ==
LOC: C.LABSPEC 18:17
PROVIDERS: ATTEND Obstetrics & Gynecology
DX: Z34.91 Encounter for supervision of normal pregnancy, unspecified, first trimester (principal)

== ENCOUNTER → 2017-03-24 | Outpatient (CLI) | payer OTHER ==
[2017-03-24 10:38] LABS: BASO % 0.7 %; BASO ABS # 0.05 K/uL (0-0.2); COMPLETE YES; EOS % 1.2 %; HEMATOCRIT 37.1 % (37-47); IG% 0.4 %; LYMPH ABS # 1.29 K/uL (1.2-3.4); MEAN CELL VOLUME 87.5 fL (80-100); MEAN CORPUSCULAR HEMOGLOBIN 29.7 pg (25-34); MEAN PLATELET VOLUME 10.5 fL (7.4-10.4); MONO % 8.2 %; NEUT % 72.5 %; PLATELET COUNT 287 K/uL (130-400); RED BLOOD COUNT 4.24 M/uL (4.2-5.4); WHITE BLOOD COUNT 7.58 K/uL (4.8-10.8)
[2017-03-25 15:03] LABS: CHLAMYDIA TRACH RNA*** NOT DETECTED (NOT DETECTED); GC (NEIS GONORRHOEAE)RNA** NOT DETECTED (NOT DETECTED)
== END | disposition home or self-care (01) ==
LOC: C.LAB1850 09:15
PROVIDERS: ATTEND Obstetrics & Gynecology
DX: Z34.91 Encounter for supervision of normal pregnancy, unspecified, first trimester (principal)

== ENCOUNTER → 2017-06-14 | Outpatient (CLI) | payer OTHER | END | disposition home or self-care (01) | LOC: C.LAB1850 09:57 | PROVIDERS: ATTEND Obstetrics & Gynecology | DX: Z34.92 Encounter for supervision of normal pregnancy, unspecified, second trimester (principal); Z3A.00 Weeks of gestation of pregnancy not specified ==

== ENCOUNTER → 2017-08-10 | Outpatient (CLI) | payer OTHER ==
[2017-08-10 11:17] LABS: HEMATOCRIT 35.1 % (37-47); HEMOGLOBIN 11.2 g/dL (12.0-16.0)
== END | disposition home or self-care (01) ==
LOC: C.LAB1850 09:25
PROVIDERS: ATTEND Obstetrics & Gynecology
DX: Z34.93 Encounter for supervision of normal pregnancy, unspecified, third trimester (principal); Z3A.00 Weeks of gestation of pregnancy not specified

== ENCOUNTER → 2017-10-04 | Outpatient (CLI) | payer OTHER | END | disposition home or self-care (01) | LOC: C.LABSPEC 10:48 | PROVIDERS: ATTEND Obstetrics & Gynecology | DX: Z34.93 Encounter for supervision of normal pregnancy, unspecified, third trimester (principal); Z3A.00 Weeks of gestation of pregnancy not specified ==